=== PATIENT | male | born 1995 | race African-American/Black ===

== ENCOUNTER 2016-12-27 21:11 | Emergency (ER) | payer BC ==
[~2016-12-27] VITALS: Ht 170.2 cm; Wt 61.2 kg
[2016-12-27 21:35] VITALS: BP 127/59
[2016-12-27] MEDS ORDERED: PRED5DRO6 EACHEYE (22:16)
--- NOTE | 2016-12-27 22:16 | PHYS DOC ---
Past Medical History Past Medical History: No Pertinent History Past Surgical History: No Surgical History Alcohol Use: None Drug Use: None Adult General Chief Complaint Chief Complaint: EYE PROBLEMS [facility] HPI Patient is a 21 year old male presents with b/l eye redness, itching and drainage for 5 days. Reports initially started in right eye and then spread to right. Was seen at Urgent Care and prescribed polymyxin/trimethoprim which he has been using for 3 days and symptoms have not improved. Denies contact lens use, change in vision, fever Review of Systems Review of Systems Constitutional: Denies fever or chills Eyes: Denies change in visual acuity or pain. Bilateral eye redness, itching, and eyes mated shut in am. HENT: Denies nasal congestion or sore throat Respiratory: Denies cough or shortness of breath Cardiovascular: No additional information not addressed in HPI [] GI: Denies abdominal pain, nausea, vomiting, bloody stools or diarrhea [] : Denies dysuria or hematuria [] Musculoskeletal: Denies back pain or joint pain [] Integument: Denies rash or skin lesions [] Neurologic: Denies headache, focal weakness or sensory changes [] Endocrine: Denies polyuria or polydipsia [] Allergies Allergies Allergies Coded Allergies Type Severity Reaction Last Updated Verified No Known Drug Allergies 11/02/13 No Physical Exam Physical Exam Constitutional: Well developed, well nourished, no acute distress, non-toxic appearance. HENT: Normocephalic, atraumatic, bilateral external ears normal, oropharynx moist, no oral exudates, nose normal. Eyes: PERRLA, EOMI. Conjunctiva injected with yellow drainage present left eye Neck: Normal range of motion, no tenderness, supple, no stridor. [] Cardiovascular:Heart rate regular rhythm, no murmur [] Lungs & Thorax: Bilateral breath sounds clear to auscultation [] Abdomen: Bowel sounds normal, soft, no tenderness, no masses, no pulsatile masses. [] Skin: Warm, dry, no erythema, no rash. [] Back: No tenderness, no CVA tenderness. [] Extremities: No tenderness, no cyanosis, no clubbing, ROM intact, no edema. [] Neurologic: Alert and oriented X 3, normal motor function, normal sensory function, no focal deficits noted. [] Psychologic: Affect normal, judgement normal, mood normal. [] Current Patient Data Vital Signs Vital Signs Date Time Temp Pulse Resp B/P Pulse Ox O2 Delivery O2 Flow Rate FiO2 12/27/16 21:35 98.4 86 16 100 Room Air 98.4 12/27/16 21:34 127/59 EKG EKG [] Radiology/Procedures Radiology/Procedures [] Impressions: A. Allergic conjunctivitis Course & Med Decision Making Course & Med Decision Making Pertinent Labs and Imaging studies reviewed. (See chart for details) [] Dragon Disclaimer Dragon Disclaimer This electronic medical record was generated, in whole or in part, using a voice recognition dictation system. Departure Departure Impression: Primary Impression: Acute allergic conjunctivitis of both eyes Disposition: HOME, SELF-CARE Condition: STABLE Referrals: NO PCP (PCP) Patient Instructions: Allergic Conjunctivitis, [id number] Additional Instructions: Use medication as directed. Follow up with primary doctor in 1-2 days. Return if problems or concerns Scripts Prednisolone Acetate 5 Ml Drops.susp1 Drop EACHEYE BID 5 Days Prov:OLE GOMEZ APRN 12/27/16 OLE GOMEZ APRN Dec 27, 2016 22:16
== END 2016-12-27 22:20 | disposition home or self-care (01) ==
LOC: ER 21:11
DX: H10.13 Acute atopic conjunctivitis, bilateral (principal)
CPT/HCPCS: 99283

== ENCOUNTER 2017-03-27 13:17 | Emergency (ER) | payer BC ==
[~2017-03-27] VITALS: Ht 170.2 cm; Wt 61.2 kg
[~2017-03-27 13:17] MED LIST: PRED5DRO6 EACHEYE
[2017-03-27 13:35] VITALS: BP 119/55
--- NOTE | 2017-03-27 13:50 | PHYS DOC ---
Past Medical History Past Medical History: No Pertinent History Past Surgical History: No Surgical History Alcohol Use: None Drug Use: None Adult General Chief Complaint Chief Complaint: PAIN ON URINATION [facility] HPI Patient is a 21 year old male who presents with dysuria for 2 days. Patient is concerned about STDs and would like to be treated and tested. Review of Systems Review of Systems Constitutional: Denies fever or chills [] Eyes: Denies change in visual acuity, redness, or eye pain [] HENT: Denies nasal congestion or sore throat [] Respiratory: Denies cough or shortness of breath [] Cardiovascular: No additional information not addressed in HPI [] GI: Denies abdominal pain, nausea, vomiting, bloody stools or diarrhea [] : Dysuria for 2 days Musculoskeletal: Denies back pain or joint pain [] Integument: Denies rash or skin lesions [] Neurologic: Denies headache, focal weakness or sensory changes [] Endocrine: Denies polyuria or polydipsia [] Allergies Allergies Allergies Coded Allergies Type Severity Reaction Last Updated Verified No Known Drug Allergies 11/02/13 No Physical Exam Physical Exam Constitutional: Well developed, well nourished, no acute distress, non-toxic appearance. [] HENT: Normocephalic, atraumatic, bilateral external ears normal, oropharynx moist, no oral exudates, nose normal. [] Eyes: PERRLA, EOMI, conjunctiva normal, no discharge. [] Neck: Normal range of motion, no tenderness, supple, no stridor. [] Cardiovascular:Heart rate regular rhythm, no murmur [] Lungs & Thorax: Bilateral breath sounds clear to auscultation [] Abdomen: Bowel sounds normal, soft, no tenderness, no masses, no pulsatile masses. [] Skin: Warm, dry, no erythema, no rash. [] Back: No tenderness, no CVA tenderness. [] Extremities: No tenderness, no cyanosis, no clubbing, ROM intact, no edema. [] Neurologic: Alert and oriented X 3, normal motor function, normal sensory function, no focal deficits noted. [] Psychologic: Affect normal, judgement normal, mood normal. [] Current Patient Data Vital Signs Vital Signs Date Time Temp Pulse Resp B/P (MAP) Pulse Ox O2 Delivery O2 Flow Rate FiO2 03/27/17 13:35 97.7 69 15 99 Room Air 97.7 EKG EKG [] Radiology/Procedures Radiology/Procedures [] Course & Med Decision Making Course & Med Decision Making Pertinent Labs and Imaging studies reviewed. (See chart for details) This is a 21-year-old male patient who presents today with dysuria for 2 days. Patient is concerned about STDs, like to be tested and treated. Urine was sent to lab. Results are not back. Patient was given Flagyl,azithromycin and Rocephin. Educated on safe sex practices especially the need to use protection. Follow-up with the health department for further STD concerns. Dragon Disclaimer Dragon Disclaimer This electronic medical record was generated, in whole or in part, using a voice recognition dictation system. Departure Departure Impression: Primary Impression: Concern about STD in male without diagnosis Disposition: 01 HOME, SELF-CARE Condition: STABLE Referrals: NO PCP (PCP) Follow-up with the health department for further STD concerns Patient Instructions: Sexually Transmitted Disease, [id number] Additional Instructions: You were seen for STD concerns. You were treated prophylaxis in the ED. We highly recommend you call all your sex partners, left them know you were treated for STDs and ask them to seek treatment too. Use protection at all times. GENO WEBBER APRN March 27, 2017 13:50
[2017-03-27 13:56] LABS: BILIRUBIN,URINE NEGATIVE (NEG); GLUCOSE,URINE NEGATIVE (NEG); NITRITE,URINE NEGATIVE (NEG); PH,URINE 6.5; PROTEIN,URINE NEGATIVE (NEG-TRACE); UROBILINOGEN,URINE 0.2 mg/dL (0.2 mg/dL)
[2017-03-27] MEDS ORDERED: AZITHROMYCIN 250 MG TABLET. PO ONE (14:00)
[2017-03-27] MEDS ORDERED: cefTRIAXone IM 250 MG VIAL IM ONE (14:00)
[2017-03-27] MEDS ORDERED: metroNIDAZOLE 500 MG TABLET PO ONE (14:00)
[2017-03-27 14:15] LABS: BACTERIA,URINE 0 /HPF (0-FEW); RBC,URINE 0 /HPF (0-2); SQUAMOUS EPITHELIAL CELL,UR OCC /LPF; WBC,URINE >40 /HPF (0-4)
--- NOTE | 2017-03-29 13:13 | VNOTE ---
CALL BACK NOTE CALL BACK Patient is positive for gonorrhea and Chlamydia, attempted to call him, his phone number does not work. GENO WEBBER APRN Mar 29, 2017 13:13
== END 2017-03-27 14:14 | disposition home or self-care (01) ==
LOC: ER 13:17
DX: Z11.3 Encounter for screening for infections with a predominantly sexual mode of transmission (principal); R30.0 Dysuria
CPT/HCPCS: 81001; 87491; 87591; 96372; 99284; J0696; Q0144

== ENCOUNTER 2017-09-30 22:59 | Emergency (ER) | payer BC ==
[~2017-09-30] VITALS: Ht 170.2 cm; Wt 61.2 kg
[~2017-09-30 22:59] MED LIST changes: +PRED5DRO16 EACHEYE; -PRED5DRO6 EACHEYE
[2017-09-30 23:10] VITALS: BP 112/58
[2017-09-30] MEDS ORDERED: METR500T PO (23:14)
[2017-09-30] MEDS ORDERED: CEFI200S PO (23:14)
[2017-09-30] MEDS ORDERED: AZIT500T PO (23:14)
--- NOTE | 2017-09-30 23:14 | PHYS DOC ---
Past Medical History Past Medical History: No Pertinent History Past Surgical History: No Surgical History Alcohol Use: None Drug Use: None Adult General Chief Complaint Chief Complaint: SEXUALLY TRANSMITTED DISEASE HPI HPI Patient is a 21 year old male presents to the emergency department with complaints of "I accidentally had unprotected intercourse 3 days ago". Patient states 2 days ago he developed urethral discharge with dysuria. He denies testicular pain or abdominal pain. Review of Systems Review of Systems Constitutional: Denies fever or chills [] Eyes: Denies change in visual acuity, redness, or eye pain [] HENT: Denies nasal congestion or sore throat [] Respiratory: Denies cough or shortness of breath [] Cardiovascular: No additional information not addressed in HPI [] GI: Denies abdominal pain, nausea, vomiting, bloody stools or diarrhea [] : Denies dysuria , urethral discharge Musculoskeletal: Denies back pain or joint pain [] Integument: Denies rash or skin lesions [] Neurologic: Denies headache, focal weakness or sensory changes [] Endocrine: Denies polyuria or polydipsia [] All other systems were reviewed and found to be within normal limits, except as documented in this note. Allergies Allergies Allergies Coded Allergies Type Severity Reaction Last Updated Verified No Known Drug Allergies 11/02/13 No Physical Exam Physical Exam Constitutional: Well developed, well nourished, no acute distress, non-toxic appearance. [] Neck: Normal range of motion, no tenderness, supple, no lymphadenopathy, no stridor. [] Abdomen: Bowel sounds normal, soft, no tenderness : pt refused Skin: Warm, dry, no erythema, no rash. [] Neurologic: Alert and oriented X 3, normal motor function, normal sensory function, no focal deficits noted. [] Psychologic: Affect normal, judgement normal, mood normal. [] EKG EKG [] Radiology/Procedures Radiology/Procedures [] Course & Med Decision Making Course & Med Decision Making Pertinent Labs and Imaging studies reviewed. (See chart for details) [] Dragon Disclaimer Dragon Disclaimer This electronic medical record was generated, in whole or in part, using a voice recognition dictation system. Departure Departure Impression: Primary Impression: Urethritis Disposition: 01 HOME, SELF-CARE Condition: STABLE Referrals: NO PCP (PCP) [facility] Patient Instructions: Urethritis, Adult Scripts Metronidazole (FLAGYL) 500 Mg Tablet 4 TAB PO ONCE, #4 TAB Prov: CHANTEL PORTILLO APRN 09/30/17 Azithromycin (ZITHROMAX) 500 Mg Tablet 4 TAB PO ONCE, #4 TAB Prov: CHANTEL PORTILLO APRN 09/30/17 Cefixime (SUPRAX) 200 Mg/5 Ml Susp.recon 400 MG PO ONCE, #10 ML Prov: CHANTEL PORTILLO APRN 09/30/17 CHANTEL PORTILLO APRN Sep 30, 2017 23:14
== END 2017-09-30 23:19 | disposition home or self-care (01) ==
LOC: ER 22:59
DX: N34.2 Other urethritis (principal)
CPT/HCPCS: 87491; 87591; 99284

== ENCOUNTER 2017-12-27 11:14 | Emergency (ER) | payer BC ==
[2017-12-27 11:41] LABS: BILIRUBIN,URINE NEGATIVE (NEG); CLARITY,URINE CLEAR; COLOR,URINE YELLOW; GLUCOSE,URINE NEGATIVE (NEG); NITRITE,URINE NEGATIVE (NEG); PROTEIN,URINE NEGATIVE (NEG-TRACE); UROBILINOGEN,URINE 0.2 mg/dL (0.2 mg/dL)
[2017-12-27 11:55] LABS: BACTERIA,URINE 0 /HPF (0-FEW); RBC,URINE 0 /HPF (0-2); SQUAMOUS EPITHELIAL CELL,UR FEW /LPF
[2017-12-27] MEDS: cefTRIAXone IM 250 MG VIAL IM (11:55)
[2017-12-27] MEDS: AZITHROMYCIN 250 MG TABLET. PO (11:56)
== END 2017-12-27 12:14 | disposition home or self-care (01) ==
LOC: ER 11:14
DX: Z20.2 Contact with and (suspected) exposure to infections with a predominantly sexual mode of transmission (principal)
CPT/HCPCS: 81001; 87491; 87591; 96372; 99284; J0696; Q0144

== ENCOUNTER 2018-01-14 01:30 | Emergency (ER) | payer BC ==
[2018-01-14 02:26] LABS: BILIRUBIN,URINE NEGATIVE (NEG); CLARITY,URINE CLOUDY; COLOR,URINE YELLOW; GLUCOSE,URINE NEGATIVE (NEG); NITRITE,URINE NEGATIVE (NEG); PROTEIN,URINE NEGATIVE (NEG-TRACE); UROBILINOGEN,URINE 0.2 mg/dL (0.2 mg/dL)
[2018-01-14 02:36] LABS: BACTERIA,URINE 0 /HPF (0-FEW); RBC,URINE 0 /HPF (0-2); SQUAMOUS EPITHELIAL CELL,UR OCC /LPF
== END 2018-01-14 02:05 | disposition left against medical advice (07) ==
LOC: ER 01:30
DX: R30.0 Dysuria (principal)
CPT/HCPCS: 81001; 87086; 99284

== ENCOUNTER 2019-10-21 04:47 | Emergency (ER) | payer BC ==
[~2019-10-21] VITALS: Ht 170.2 cm; Wt 62.6 kg
[~2019-10-21 04:47] MED LIST changes: +AZIT500T PO; +CEFI200S PO; +METR500T PO
[2019-10-21 05:46] VITALS: BP 124/55
--- NOTE | 2019-10-21 06:54 | PHYS DOC ---
Past Medical History Past Medical History: STD, Other Additional Past Medical Histor: MULTIPLE STDS Past Surgical History: No Surgical History Alcohol Use: Occasionally Drug Use: None Adult General Chief Complaint Chief Complaint: SEXUALLY TRANSMITTED DISEASE HPI HPI Patient is a 23 year old male patient with history of previous STD with chlamydia who presents with complaint of penile discharge and burning. Patient states he has had white penile discharge with history of the last 2 days and his ex told him that he needs to check for STD did not mention what kind of STD she had. Patient denies nausea vomiting, fever and chills, abdominal pain. Review of Systems Review of Systems Constitutional: Denies fever or chills [] Eyes: Denies change in visual acuity, redness, or eye pain [] HENT: Denies nasal congestion or sore throat [] Respiratory: Denies cough or shortness of breath [] Cardiovascular: No additional information not addressed in HPI [] GI: Denies abdominal pain, nausea, vomiting, bloody stools or diarrhea [] : Denies dysuria or hematuria [] Musculoskeletal: Denies back pain or joint pain [] Integument: Denies rash or skin lesions [] Neurologic: Denies headache, focal weakness or sensory changes [] Endocrine: Denies polyuria or polydipsia [] All other systems were reviewed and found to be within normal limits, except as documented in this note. Current Medications Current Medications Current Medications Medications (Trade) Dose Ordered Sig/Nisreen Start Time Stop Time Status Last Admin Dose Admin Azithromycin (Zithromax) 1,000 mg 1X ONCE 10/21/19 07:00 10/21/19 07:01 DC 10/21/19 06:54 1,000 MG Ceftriaxone Sodium (Rocephin Im) 250 mg 1X ONCE 10/21/19 07:00 10/21/19 07:01 DC 10/21/19 06:53 250 MG Allergies Allergies Allergies Coded Allergies Type Severity Reaction Last Updated Verified No Known Drug Allergies 11/02/13 No Physical Exam Physical Exam Constitutional: Well developed, well nourished, no acute distress, non-toxic appearance. [] HENT: Normocephalic, atraumatic Eyes: PERRLA, EOMI, conjunctiva normal, no discharge. [] Neck: Normal range of motion, no tenderness, supple, no stridor. [] Cardiovascular:Heart rate regular rhythm, no murmur [] Lungs & Thorax: Bilateral breath sounds clear to auscultation [] Abdomen: Bowel sounds normal, soft, no tenderness, no masses, no pulsatile masses. [] Neurologic: Alert and oriented X 3, normal motor function, normal sensory function, no focal deficits noted. [] Psychologic: Affect normal, judgement normal, mood normal. [] Current Patient Data Vital Signs Vital Signs Date Time Temp Pulse Resp B/P (MAP) Pulse Ox O2 Delivery O2 Flow Rate FiO2 10/21/19 05:46 98.4 67 16 124/55 (78) Room Air 98.4 EKG EKG [] Radiology/Procedures Radiology/Procedures [] Course & Med Decision Making Course & Med Decision Making Pertinent Labs are pending. Patient is here for concern for STD after receiving Rocephin and Zithromax eloped without having the discharge paper work.[] Dragon Disclaimer Dragon Disclaimer This electronic medical record was generated, in whole or in part, using a voice recognition dictation system. Departure Departure Impression: Primary Impression: Exposure to STD Additional Impression: Concern about STD in male without diagnosis Disposition: 01 HOME, SELF-CARE Condition: STABLE Referrals: NO PCP (PCP) Patient Instructions: Sexually Transmitted Disease Additional Instructions: Drink plenty of liquids Follow-up with your primary care physician in 3-5 days Return to ER if not getting better Problem Qualifiers MALIHA CORADO MD Oct 21, 2019 06:54
[2019-10-21] MEDS ORDERED: AZITHROMYCIN 250 MG TABLET. PO ONE (07:00)
[2019-10-21] MEDS ORDERED: cefTRIAXone IM 250 MG VIAL IM ONE (07:00)
[2019-10-21 08:33] LABS: BILIRUBIN,URINE NEGATIVE (NEG); CLARITY,URINE CLEAR; COLOR,URINE YELLOW; NITRITE,URINE NEGATIVE (NEG); PH,URINE 6.5; PROTEIN,URINE NEGATIVE (NEG-TRACE)
[2019-10-21 08:42] LABS: RBC,URINE 0 /HPF (0-2)
[2019-10-21 08:43] LABS: BACTERIA,URINE 0 /HPF (0-FEW); SQUAMOUS EPITHELIAL CELL,UR OCC /LPF
== END 2019-10-21 08:17 | disposition home or self-care (01) ==
LOC: ER 04:47
DX: R36.9 Urethral discharge, unspecified (principal); Z20.2 Contact with and (suspected) exposure to infections with a predominantly sexual mode of transmission; Z79.899 Other long term (current) drug therapy
CPT/HCPCS: 81001; 87086; 87491; 87591; 96372; 99284; J0696; Q0144; 36415

== ENCOUNTER 2019-12-16 04:58 | Emergency (ER) | payer BC ==
[~2019-12-16] VITALS: Ht 170.2 cm; Wt 62.7 kg
[2019-12-16 05:00] VITALS: BP 132/58
--- NOTE | 2019-12-16 05:56 | PHYS DOC ---
Past Medical History Past Medical History: STD, Other Additional Past Medical Histor: MULTIPLE STDS Past Surgical History: No Surgical History Smoking Status: Never Smoker Alcohol Use: Occasionally Drug Use: None Adult General Chief Complaint Chief Complaint: SEXUALLY TRANSMITTED DISEASE HPI HPI Patient is a 24 year old -[place] male who is been evaluated in this emergency department multiple time for STD checks were reports urethral discharge and itching starting yesterday after having unprotected intercourse with a new sex partner 2 days ago. No testicular pain, swelling, hematuria, urinary frequency urgency. No flank pain, nausea vomiting. No other acute symptoms or complaints. [] Review of Systems Review of Systems ROS as HPI All other systems were reviewed and found to be within normal limits, except as documented in this note. Current Medications Current Medications Current Medications Medications (Trade) Dose Ordered Sig/Nisreen Start Time Stop Time Status Last Admin Dose Admin Azithromycin (Zithromax) 1,000 mg 1X ONCE 12/16/19 06:00 12/16/19 06:01 Ceftriaxone Sodium (Rocephin Im) 250 mg 1X ONCE 12/16/19 06:00 12/16/19 06:01 Allergies Allergies Allergies Coded Allergies Type Severity Reaction Last Updated Verified No Known Drug Allergies 11/02/13 No Physical Exam Physical Exam Constitutional: Well developed, well nourished, no acute distress, non-toxic appearance. [] HENT: Normocephalic, atraumatic, bilateral external ears normal, oropharynx moist, nose normal. [] Eyes: PERRLA, EOMI, conjunctiva normal, no discharge. [] Neck: Normal range of motion. [] Cardiovascular:Heart rate regular rhythm, no murmur [] Lungs & Thorax: Bilateral breath sounds clear to auscultation [] Neurologic: Alert and oriented X 3, normal motor function, normal sensory function, no focal deficits noted. [] Psychologic: Affect normal, judgement normal, mood normal. [] EKG EKG [] Radiology/Procedures Radiology/Procedures [] Course & Med Decision Making Course & Med Decision Making Pertinent Labs and Imaging studies reviewed. (See chart for details) [Empirically treated for STDs. Recommended safe sex practices and PCP follow-up for additional testing] Dragon Disclaimer Dragon Disclaimer This electronic medical record was generated, in whole or in part, using a voice recognition dictation system. Departure Departure Impression: Primary Impression: Concern about STD in male without diagnosis Disposition: HOME, SELF-CARE Condition: STABLE Referrals: NO PCP (PCP) Patient Instructions: Sexually Transmitted Disease, [id number] Additional Instructions: Do not have sexual intercourse with new partners without being tested are using a condom Follow up with yourr PCP or health Department for HIV and hepatitis testing. KEYANA GILBERT DO Dec 16, 2019 05:56
[2019-12-16] MEDS ORDERED: AZITHROMYCIN 250 MG TABLET. PO ONE (06:00)
[2019-12-16] MEDS ORDERED: cefTRIAXone IM 250 MG VIAL IM ONE (06:00)
== END 2019-12-16 05:55 | disposition home or self-care (01) ==
LOC: ER 04:58
DX: R36.9 Urethral discharge, unspecified (principal); L29.9 Pruritus, unspecified
CPT/HCPCS: 99283; J0696; Q0144

== ENCOUNTER 2020-06-11 09:40 | Emergency (ER) | payer BC ==
[~2020-06-11] VITALS: Ht 170.2 cm; Wt 63.6 kg
[2020-06-11] MEDS ORDERED: cefTRIAXone IM 250 MG VIAL IM ONE (09:45)
[2020-06-11] MEDS ORDERED: ONDANSETRON ODT 4 MG TAB.RAPDIS. PO ONE (09:45)
[2020-06-11] MEDS ORDERED: AZITHROMYCIN 250 MG TABLET. PO ONE (09:45)
[2020-06-11 09:48] VITALS: BP 120/68
[2020-06-11 10:16] LABS: BILIRUBIN,URINE SMALL (NEG); CLARITY,URINE CLOUDY; COLOR,URINE YELLOW; NITRITE,URINE NEGATIVE (NEG); PROTEIN,URINE NEGATIVE (NEG-TRACE); UROBILINOGEN,URINE 0.2 mg/dL (0.2 mg/dL)
--- NOTE | 2020-06-11 10:18 | PHYS DOC ---
Past Medical History Past Medical History: No Pertinent History, STD, Other Additional Past Medical Histor: MULTIPLE STDS Past Surgical History: No Surgical History Smoking Status: Current Every Day Smoker Alcohol Use: None Drug Use: None General Adult EDM: Chief Complaint: SEXUALLY TRANSMITTED DISEASE HPI: HPI: Patient is a 24-year-old male who presents to the emergency room with dysuria and penile discharge. He states his girlfriend recently was diagnosed with a UTI and so he wants to make sure he does not have an STD. He denies any te sticular pain. This started this morning. Review of Systems: Review of Systems: Negative other than marked Heart Score: Risk Factors: Risk Factors: DM, Current or recent (<one month) smoker, HTN, HLP, family history of CAD, obesity. Risk Scores: Score 0 - 3: 2.5% MACE over next 6 weeks - Discharge Home Score 4 - 6: 20.3% MACE over next 6 weeks - Admit for Clinical Observation Score 7 - 10: 72.7% MACE over next 6 weeks - Early Invasive Strategies Current Medications: Current Medications Medications (Trade) Dose Ordered Sig/Nisreen Start Time Stop Time Status Last Admin Dose Admin Azithromycin (Zithromax) 1,000 mg 1X ONCE 06/11/20 09:45 06/11/20 09:50 DC Ceftriaxone Sodium (Rocephin Im) 250 mg 1X ONCE 06/11/20 09:45 06/11/20 09:50 DC Ondansetron HCl (Zofran Odt) 4 mg 1X ONCE 06/11/20 09:45 06/11/20 09:49 DC Allergies: Allergies: Allergies Coded Allergies Type Severity Reaction Last Updated Verified No Known Drug Allergies 11/02/13 No Physical Exam: PE: General: Awake, alert, NAD. Well Nourished, well hydrated. Cooperative Neck: Supple, trachea midline CV: RRR, no murmur, cap refill <2 GI: Soft, nondistended, nontender, no masses MSK: No obvious deformities Skin: Warm, dry, intact Neuro: A&O x3, speech NL, sensory and motor grossly intact, no focal deficits Psych: Normal affect, normal mood, not suicidal or homicidal Current Patient Data: Vital Signs: Vital Signs Date Time Temp Pulse Resp B/P (MAP) Pulse Ox O2 Delivery O2 Flow Rate FiO2 06/11/20 09:48 97.9 66 16 120/68 (85) 97 Room Air 97.9 EKG: EKG: [] Radiology/Procedures: Radiology/Procedures: [] Course & Med Decision Making: Course & Med Decision Making Pertinent Labs and Imaging studies reviewed. (See chart for details) Patient is 24-year-old male who presents to the emergency room complaining of penile discharge. This is likely due to gonorrhea or chlamydia. UA was done to evaluate for trichomonas. Gonorrhea and chlamydia will be sent off. Patient will be treated empirically. We discussed that his partner would also need to be treated and that he should not have sex for the next 10 days. Patient's test results and vitals while in the ED were fully reviewed and discussed with the patient. Patient is stable and at this time does not need admission to the [facility]. We have discussed strict return precautions and the importance of following up with their Primary Care Physician. Patient stated understanding and was given an opportunity to ask any questions. Patient is in agreement with plan. Rip Disclaimer: Rip Disclaimer: This electronic medical record was generated, in whole or in part, using a voice recognition dictation system. Departure Departure Impression: Primary Impression: Urethritis Disposition: HOME, SELF-CARE Condition: STABLE Referrals: NO PCP (PCP) Patient Instructions: Sexuality and Disability Justicifation of Admission Dx: Justifications for Admission: Justification of Admission Dx: N/A ALBERTO DEAL MD Jun 11, 2020 10:18
[2020-06-11 10:29] LABS: BACTERIA,URINE MOD /HPF (0-FEW); RBC,URINE FIELD OBSCURED /HPF (0-2); WBC,URINE TNTC /HPF (0-4)
== END 2020-06-11 10:52 | disposition home or self-care (01) ==
LOC: ER 09:40
DX: N34.2 Other urethritis (principal); R30.0 Dysuria; F17.200 Nicotine dependence, unspecified, uncomplicated
CPT/HCPCS: 81001; 87491; 87591; 96372; 99283; J0696

== ENCOUNTER 2020-09-10 | Emergency (ER) | payer BC ==
[~2020-09-10] VITALS: Ht 170.2 cm; Wt 62.0 kg
[2020-09-10 00:10] VITALS: BP 137/61
--- NOTE | 2020-09-10 00:25 | PHYS DOC ---
Past Medical History Past Medical History: No Pertinent History, STD, Other Additional Past Medical Histor: MULTIPLE STDS Past Surgical History: No Surgical History Smoking Status: Current Every Day Smoker Alcohol Use: None Drug Use: None General Adult EDM: Chief Complaint: SEXUALLY TRANSMITTED DISEASE HPI: HPI: History obtained from patient. Patient is a 24-year-old male who reports a history of STD who presents with chief complaint of concern for STD exposure. He states he had unprotected sex with a partner yesterday. Denies any dysuria. Denies any penile discharge. Denies any testicular pain. Denies any rashes. Denies any lymph node swelling. Denies vomiting. Denies pain with bowel movement. States he just wants to precautions and be tested and treated for STDs tonight. No other complaints. Review of Systems: Review of Systems: Constitutional: Denies fever or chills. [] Eyes: Denies change in visual acuity. [] HENT: Denies nasal congestion or sore throat. [] Respiratory: Denies cough or shortness of breath. [] Cardiovascular: Denies chest pain or edema. [] GI: Denies abdominal pain, nausea, vomiting, bloody stools or diarrhea. [] : Denies dysuria. [] Musculoskeletal: Denies back pain or joint pain. [] Integument: Denies rash. [] Neurologic: Denies headache, focal weakness or sensory changes. [] Endocrine: Denies polyuria or polydipsia. [] Lymphatic: Denies swollen glands. [] Psychiatric: Denies depression or anxiety. [] Heart Score: Risk Factors: Risk Factors: DM, Current or recent (<one month) smoker, HTN, HLP, family history of CAD, obesity. Risk Scores: Score 0 - 3: 2.5% MACE over next 6 weeks - Discharge Home Score 4 - 6: 20.3% MACE over next 6 weeks - Admit for Clinical Observation Score 7 - 10: 72.7% MACE over next 6 weeks - Early Invasive Strategies Allergies: Allergies: Allergies Coded Allergies Type Severity Reaction Last Updated Verified No Known Drug Allergies 11/02/13 No Physical Exam: PE: Constitutional: Well developed, well nourished, no acute distress, non-toxic appearance. [] HENT: Normocephalic, atraumatic, bilateral external ears normal, oropharynx moist, no oral exudates, nose normal. [] Eyes: PERRLA, EOMI, conjunctiva normal, no discharge. [] Neck: Normal range of motion, no tenderness, supple, no stridor. [] Cardiovascular:Heart rate regular rhythm, no murmur [] Lungs & Thorax: Bilateral breath sounds clear to auscultation [] Abdomen: Soft, nontender, nonacute abdomen. No involuntary guarding or rigidity noted. No acute peritonitis. : No testicular tenderness or swelling noted. No overlying erythema. Ci rcumcised. Scant amount of penile discharge appreciated. Skin: Warm, dry, no erythema, no rash. [] Back: No tenderness, no CVA tenderness. [] Extremities: No tenderness, no cyanosis, no clubbing, ROM intact, no edema. [] Neurologic: Alert and oriented X 3, normal motor function, normal sensory f unction, no focal deficits noted. [] Psychologic: Affect normal, judgement normal, mood normal. [] EKG: EKG: [] Radiology/Procedures: Radiology/Procedures: [] Course & Med Decision Making: Course & Med Decision Making Pertinent Labs and Imaging studies reviewed. (See chart for details) [] Patient is a well-appearing 24-year-old male who presents with chief complaint of concern of exposure to STD. Exam noted above. Chlamydia and gonorrhea cultures will be sent off a urine specimen. Given patient's concern prophylactic antibiotics to be administered. He will be given Rocephin, azithromycin, and 2000 mg of Flagyl. He will be notified of pending culture results. Return precautions discussed and understood. Counseled on safe sex measures. Stable for discharge Rip Disclaimer: Rip Disclaimer: This electronic medical record was generated, in whole or in part, using a voice recognition dictation system. Departure Departure Impression: Primary Impression: Concern about STD in male without diagnosis Disposition: 01 DC HOME SELF CARE/HOMELESS Condition: STABLE Referrals: NO PCP (PCP) Patient Instructions: Sexuality and Disability PEPE JIMENEZ DO Sep 10, 2020 00:25
[2020-09-10] MEDS ORDERED: metroNIDAZOLE 500 MG TABLET PO ONE ×2 (00:30→01:15)
[2020-09-10] MEDS ORDERED: AZITHROMYCIN 250 MG TABLET. PO ONE ×2 (00:30→01:15)
[2020-09-10] MEDS ORDERED: cefTRIAXone IM 250 MG VIAL IM ONE (00:30)
[2020-09-10] MEDS ORDERED: ONDANSETRON ODT 4 MG TAB.RAPDIS. PO ONE ×2 (00:45→01:00)
[2020-09-10] MEDS ORDERED: ONDANSETRON ODT 4 MG TAB.RAPDIS. ONE (00:46)
== END 2020-09-10 01:51 | disposition home or self-care (01) ==
LOC: ER
DX: Z20.2 Contact with and (suspected) exposure to infections with a predominantly sexual mode of transmission (principal); F17.200 Nicotine dependence, unspecified, uncomplicated
CPT/HCPCS: 87491; 87591; 96372; 99284; J0696

== ENCOUNTER 2021-08-04 11:17 | Emergency (ER) | payer BC ==
[~2021-08-04] VITALS: Ht 170.2 cm; Wt 65.0 kg
--- NOTE | 2021-08-04 11:39 | PHYS DOC ---
Past Medical History Past Medical History: No Pertinent History Additional Past Medical Histor: MULTIPLE STDS Past Surgical History: No Surgical History Smoking Status: Never Smoker Alcohol Use: Occasionally Drug Use: None General Adult EDM: Chief Complaint: FEVER HPI: HPI: Patient is a 25 year old male with no significant medical history who presents to the ED today complaining of fever and chills, symptoms began 3 days ago. Patient denies any cough, congestion. He states he is unvaccinated against COVID-19. Review of Systems: Review of Systems: Constitutional: Reports fever and chills Eyes: Denies change in visual acuity. [] HENT: Denies nasal congestion or sore throat. [] Respiratory: Denies cough or shortness of breath. [] Cardiovascular: Denies chest pain or edema. [] GI: Denies abdominal pain, nausea, vomiting, bloody stools or diarrhea. [] : Denies dysuria. [] Musculoskeletal: Denies back pain or joint pain. [] Integument: Denies rash. [] Neurologic: Denies headache, focal weakness or sensory changes. [] Psychiatric: Denies depression or anxiety. [] Heart Score: C/O Chest Pain: N/A Risk Factors: Risk Factors: DM, Current or recent (<one month) smoker, HTN, HLP, family history of CAD, obesity. Risk Scores: Score 0 - 3: 2.5% MACE over next 6 weeks - Discharge Home Score 4 - 6: 20.3% MACE over next 6 weeks - Admit for Clinical Observation Score 7 - 10: 72.7% MACE over next 6 weeks - Early Invasive Strategies Allergies: Allergies: Allergies Coded Allergies Type Severity Reaction Last Updated Verified No Known Drug Allergies 11/02/13 No Physical Exam: PE: Constitutional: Well developed, well nourished, no acute distress, non-toxic appearance. [] HENT: Normocephalic, atraumatic, bilateral external ears normal, oropharynx moist, no oral exudates, nose normal. [] Eyes: PERRLA, EOMI, conjunctiva normal, no discharge. [] Neck: Normal range of motion, no tenderness, supple, no stridor. [] Cardiovascular:Heart rate regular rhythm, no murmur [] Lungs & Thorax: Bilateral breath sounds clear to auscultation [] Abdomen: Bowel sounds normal, soft, no tenderness, no masses, no pulsatile masses. [] Skin: Warm, dry, no erythema, no rash. [] Back: No tenderness, no CVA tenderness. [] Extremities: No tenderness, no cyanosis, no clubbing, ROM intact, no edema. [] Neurologic: Alert and oriented X 3, normal motor function, normal sensory function, no focal deficits noted. [] Psychologic: Affect normal, judgement normal, mood normal. [] EKG: EKG: [] Radiology/Procedures: Radiology/Procedures: []PROCEDURE: CHEST AP ONLY Single view of the chest. 08/04/2021 11:38 AM Indication: Reason: fever / Spl. Instructions: / History: Comparison: None Findings: There is no focal consolidation. There is no pleural effusion or pneumothorax. The cardiomediastinal silhouette and pulmonary vasculature are within normal limits. No acute osseous abnormalities are seen. Impression: No evidence of acute cardiopulmonary process. Electronically signed by: Harsh Connelly MD (08/04/2021 12:07 PM) [id number] DICTATED and SIGNED BY: HARSH CONNELLY MD DATE: 08/04/21 [id number] 0 Course & Med Decision Making: Course & Med Decision Making Pertinent Labs and Imaging studies reviewed. (See chart for details) This a 25-year-old male patient presented to the ED today with fever and chills that began 3 days ago. temp 102.4 on arrival O2 sats 95% on room air and above Chest x-ray interpreted by radiologist is negative for any acute findings Negative influenza a and B, negative rapid Covid test. PCR Covid pending. Discharge to home. Supportive care measures recommended. Provided return precautions. Dragon Disclaimer: Rip Disclaimer: This electronic medical record was generated, in whole or in part, using a voice recognition dictation system. Departure Departure Impression: Primary Impression: Fever Qualified Codes: R50.9 - Fever, unspecified Additional Impression: Person under investigation for COVID-19 Disposition: HOME / SELF CARE / HOMELESS Condition: STABLE Referrals: NO PCP (PCP) Patient Instructions: Fever, Adult Additional Instructions: You were evaluated in the emergency room for fever. Your rapid Covid test is negative, your chest x-ray is negative, you are negative for influenza A or B. We are still waiting for your PCR Covid test. We will call you with the results when they come back. Please rest, push fluids. Ensure you are taking Tylenol or Motrin for fevers. Maintain good hand hygiene. Follow-up with your doctor in a week GENO WEBBER APRN Aug 04, 2021 11:39
[2021-08-04] MEDS ORDERED: ACETAMINOPHEN 500 MG TABLET PO ONE (11:45)
[2021-08-04] MEDS ORDERED: IBUPROFEN 200 MG TABLET. PO ONE (11:45)
[2021-08-04] MEDS ORDERED: predniSONE 10 MG TABLET PO ONE (11:45)
--- NOTE | 2021-08-04 12:09 | RAD ---
Single view of the chest. 08/04/2021 11:38 AM Indication: Reason: fever / Spl. Instructions: / History: Comparison: None Findings: There is no focal consolidation. There is no pleural effusion or pneumothorax. The cardiome diastinal silhouette and pulmonary vasculature are within normal limits. No acute osseous abnormaliti es are seen. Impression: No evidence of acute cardiopulmonary process. Electronically signed by: Harsh Dyson MD (08/04/2021 12:07 PM) [id number]
[2021-08-04] MEDS ORDERED: ONDANSETRON ODT 4 MG TAB.RAPDIS. PO ONE (12:15)
[2021-08-04 12:19] LABS: INFLUENZA A PATIENT NEGATIVE (NEGATIVE); INFLUENZA B PATIENT NEGATIVE (NEGATIVE)
[2021-08-04 13:05] VITALS: BP 99/51
--- NOTE | 2021-08-05 19:03 | NUR ---
IP: Attempted to contact pt concerning covid results. Phone number provided is not a working number. Attempted to contact pt's mother and she does not have a voicemail set up.
== END 2021-08-04 13:36 | disposition home or self-care (01) ==
LOC: ER 11:17
DX: R50.9 Fever, unspecified (principal); Z20.822 Contact with and (suspected) exposure to COVID-19
CPT/HCPCS: 71045; 87426; 87804; 99284; J7512; U0003; U0005